=== PATIENT | female | born 1980 | race Caucasian/White ===

== ENCOUNTER 2017-07-03 18:01 | Emergency (ER) | payer OTHER ==
[2017-07-03] MEDS ORDERED: Acetaminophen/Codeine 30-300mg Tablet ONE (19:33)
--- NOTE | 2017-07-03 19:36 | RAD ---
LEFT FOOT THREE VIEWS: 07/03/17 HISTORY: Foot pain. There are calcaneal spurs present. There is some minimal arthritic changes of the ankle joint. There is soft tissue swelling on the dorsum of the foot. There is no signs of any acute bony findings. Mini mal arthritic changes of the first metatarsophalangeal joint are seen. Accessory navicular is noted. IMPRESSION: No acute findings. POS: [facility]
== END 2017-07-03 19:40 | disposition home or self-care (01) ==
LOC: ERS 18:01
DX: L03.032 Cellulitis of left toe (principal); I10 Essential (primary) hypertension; G43.909 Migraine, unspecified, not intractable, without status migrainosus; F17.210 Nicotine dependence, cigarettes, uncomplicated

== ENCOUNTER 2017-07-07 07:41 | Emergency (ER) | payer OTHER, SELFPAY ==
[2017-07-07 08:32] LABS: #Lymphocytes 2.1 thou/uL (1.20-3.40); #Monocytes 0.4 thou/uL (0.11-0.59); #Neutrophils 5.5 thou/uL (1.40-6.50); %Basophils 0.3 % (0.0-1.0); %Eosinophils 0.5 % (0.0-10.0); %Lymphocytes 26.5 % (21.0-51.0); %Monocytes 4.9 % (0.0-10.0); %Neutrophils 67.8 % (42.0-75.0); Hemoglobin 13.2 g/dL (12.0-16.0); Mean Corpuscular HGB CONC 33.4 g/dL (32.0-36.0); Mean Corpuscular Hemoglobin 34.8 pg (27.0-31.0); Mean Platelet Volume 6.5 fL (7.4-10.4); Platelet Count 379 thou/uL (130-400); RBC Distribution Width 11.8 % (11.5-14.5); Red Blood Cell (RBC) Count 3.81 mill/uL (4.20-5.40); White Blood Cell (WBC) Count 8.1 thou/uL (4.8-10.8)
[2017-07-07 08:50] LABS: ALT (SGPT) 32 U/L (8-55); AST (SGOT) 16 U/L (5-34); Albumin 4.3 g/dL (3.5-5.0); Alkaline Phosphatase 102 U/L (40-150); Anion Gap 13 mmol/L (10-20); BUN (Urea Nitrogen) 15 mg/dL (7.0-18.7); Bilirubin, Total 0.2 mg/dL (0.2-1.2); Calc. Creatinine Clearance 0 mL/min (70-130); Calcium 9.4 mg/dL (7.8-10.44); Carbon Dioxide 16 mmol/L (22-29); Chloride 113 mmol/L (98-107); Estimated GFR-MDRD 77; Globulin 2.8 g/dL (2.4-3.5); Glucose 96 mg/dL (70-105); Potassium 4.1 mmol/L (3.5-5.1); Protein, Total 7.1 g/dL (6.0-8.3); Sodium 138 mmol/L (136-145)
--- NOTE | 2017-07-07 10:45 | RAD ---
THREE VIEWS LEFT FOOT: INDICATION: Left foot pain. COMPARISON: Prior dated 07/03/17. FINDINGS: There is persistent soft tissue swelling surrounding the forefoot. There is a tiny ossific linear de nsity seen adjacent to the base of the 2nd metatarsal seen best on the oblique images. Tarsometatars al alignment on the AP and oblique images remains within normal limits. The tarsometatarsal alignmen t on the lateral projection remains within normal limits. Accessory ossicle is seen adjacent to the cuboid. Enthesopathic change is seen on the posterior calcaneus. IMPRESSION: Persistent soft tissue swelling surrounding the forefoot with suggestion of a small ossific fragment seen adjacent to the medial base of the 2nd metatarsal on the oblique projection only. Due to the pe rsistent complaint of foot pain with associated soft tissue swelling and this radiographic finding on the current examination, which was not evident on the comparison exam dated 07/04/07, a Lisfranc inju ry cannot be excluded. Recommend a dedicated CT of the left foot to evaluate for a Lisfranc injury. POS: [facility]
[2017-07-07] MEDS ORDERED: Lidocaine 1% w/Epinephrine 1:100K 20 ML VIAL ONE (11:40)
[2017-07-07] MEDS ORDERED: Morphine 4 MG/ML VIAL ONE (12:37)
== END 2017-07-07 13:29 | disposition home or self-care (01) ==
LOC: ERS 07:41
DX: L02.612 Cutaneous abscess of left foot (principal); I10 Essential (primary) hypertension; G43.909 Migraine, unspecified, not intractable, without status migrainosus; F17.210 Nicotine dependence, cigarettes, uncomplicated
CPT/HCPCS: 10060; 36415; 80053; 85025; 96374; J2001; J2270

== ENCOUNTER 2017-11-03 02:54 | Inpatient (IN) | payer SELFPAY ==
[2017-11-03] MEDS ORDERED: Ondansetron ODT 4 MG TAB ONE (03:08)
[2017-11-03 03:57] LABS: ALT (SGPT) 22 U/L (8-55); AST (SGOT) 28 U/L (5-34); Albumin 4.4 g/dL (3.5-5.0); Alkaline Phosphatase 86 U/L (40-150); Anion Gap 16 mmol/L (10-20); BUN (Urea Nitrogen) 14 mg/dL (7.0-18.7); Bilirubin, Total 0.4 mg/dL (0.2-1.2); Calc. Creatinine Clearance 0 mL/min (70-130); Calcium 9.6 mg/dL (7.8-10.44); Carbon Dioxide 16 mmol/L (22-29); Chloride 110 mmol/L (98-107); Estimated GFR-MDRD 66; Globulin 3.2 g/dL (2.4-3.5); Glucose 102 mg/dL (70-105); Potassium 4.8 mmol/L (3.5-5.1); Protein, Total 7.6 g/dL (6.0-8.3); Sodium 137 mmol/L (136-145)
[2017-11-03 04:00] LABS: Band 10 % (5-11); Hemoglobin 13.5 g/dL (12.0-16.0); MDiff Complete? YES; Mean Corpuscular HGB CONC 34.3 g/dL (32.0-36.0); Mean Corpuscular Hemoglobin 35.2 pg (27.0-31.0); Mean Platelet Volume 7.5 fL (7.4-10.4); Neutrophil 90 % (42-75); PLT Morphology Comment Appears Adequate; Platelet Count 279 thou/uL (130-400); RBC Distribution Width 11.9 % (11.5-14.5); Red Blood Cell (RBC) Count 3.85 mill/uL (4.20-5.40); White Blood Cell (WBC) Count 20.7 thou/uL (4.8-10.8)
[2017-11-03] MEDS ORDERED: Piperacillin/Tazobactam 4.5 GM VIAL ONE (05:09)
[2017-11-03 05:23] LABS: Base Excess-Venous -2.4 mmol/L (0 (+/- 2.5)); Bicarbonate (HCO3v) 22.1 mmol/L (1.0-85.0); CO2 Tension (PvCO2) 36.7 mmHg (41.0-51.0); Calcium, Ionized 1.22 mmol/L (1.12-1.32); Potassium 4.2 mmol/L (3.4-4.7); T. Carbon Dioxide 23.3 mmol/L (1.0-85.0); pH (Venous) 7.388 (7.35-7.45); vO2 Saturation-calc 78.3 % (94-98)
[2017-11-03] MEDS ORDERED: Morphine 4 MG/ML VIAL ONE (07:16)
--- NOTE | 2017-11-03 07:37 | RAD ---
CHEST 1 VIEW: HISTORY: Fever. Sepsis. COMPARISON: 10/31/17. FINDINGS: Portable upright chest demonstrates a normal cardiac silhouette. The pulmonary vessels and hilum are normal. Costophrenic angles are clear. No masses or consolidation. No pneumothorax or osseous abn ormalities. IMPRESSION: No acute cardiopulmonary process. POS: [facility]
[2017-11-03] MEDS ORDERED: ISOVUE-370 76%-LOCM 1 ML ONE (07:44)
[2017-11-03 07:50] LABS: Bilirubin Negative (Negative); Blood, Urine Trace (Negative); Clarity CLEAR (Clear); Glucose, Urine (Dipstick) Negative (Negative); Leukocyte Negative (Negative); Nitrite Negative (Negative); Protein, Urine (Dipstick) Negative (Neg-Trace); Specific Gravity, Urine 1.024 (1.002-1.036); Urobilinogen 0.2 mg/dL (0.2-1.0)
[2017-11-03 07:53] LABS: Bacteria/HPF None Seen HPF (None Seen); Hyaline Casts/LPF 0-3 HYALINE CAST LPF (0-3 Hyaline); Pathc Cast-AUWi Flag 0.29 (0-2.49); Squamous Epithelial 0-3 HPF (0-3); WBC/HPF None Seen HPF (0-3)
[2017-11-03] MEDS ORDERED: Ondansetron HCl/PF 4 MG/2 ML Vial ONE (08:07)
--- NOTE | 2017-11-03 08:16 | RAD ---
CHEST 1 VIEW: Date: 11/03/17 COMPARISON: 11/03/17. HISTORY: Sepsis. FINDINGS: Interval placement of right-sided internal jugular central venous catheter. There is no pneumothorax. Stable aeration of the lung parenchyma. Stable cardiac silhouette. IMPRESSION: Interval placement of right-sided internal jugular central venous catheter. No pneumothorax. POS: [facility]
--- NOTE | 2017-11-03 08:32 | CT ---
ABDOMEN CT WITH CONTRAST PELVIC CT WITH CONTRAST: COMPARISON: 08/15/16. HISTORY: Nausea. Vomiting. Fever and malaise. Weakness. Abdominal pain. FINDINGS: ABDOMEN CT: Minimal dependent atelectatic changes. Normal heart size. No pericardial effusion. The descending thoracic aorta and abdominal aorta have a normal caliber. No periaortic fat stranding. Nonspecific periaortic and aortocaval lymph nodes. Unremarkable gallbladder. Liver, spleen, pancreas, and adrenal glands are unremarkable. Symmetric enhancement of the kidneys. Bilaterally, no obstructive uropathy. No gastrohepatic, retrocrural, or periportal lymphadenopathy. No mesenteric mass, lymphadenopathy, free air, or free fluid. Limited evaluation of the alimentary c anal by the lack of oral contrast. Gastric mucosa, duodenum, and multiple normal-caliber small bowel loops are noted. Ileocecal junction is normal. Normal-caliber appendix. Scattered fecal material in a nondistended, nondilated colon. Occasional diverticulum. No diverticulitis. Symmetric enhancement of the kidneys. Symmetric excretion into a nondistended, nondilated intra- and extrarenal collecting system. PELVIC CT: No masses, lymphadenopathy, free air, or free fluid. Uterus appears to be surgically absent. Bilate ral adnexal structures are grossly unremarkable. The left ovary is noted with multiple follicles. T he urinary bladder is unremarkable. No lytic or blastic lesions in the osseous structures. IMPRESSION: 1. No acute abnormality in the abdomen or pelvis. 2. Normal-caliber appendix. 3. Symmetric enhancement and excretion into the kidneys. POS: [facility]
[2017-11-03] MEDS ORDERED: Promethazine HCl 25 MG/ML VIAL ONE (08:48)
[2017-11-03] MEDS ORDERED: Sodium Chloride 0.9% 1,000 ML IV SCH (12:31)
[2017-11-03] MEDS ORDERED: Acetaminophen 325 MG TAB PO PRN (13:00)
[2017-11-03] MEDS ORDERED: Piperacillin/Tazobactam 4.5 GM in Sodium Chloride 0.9% 100 ML IVPB SCH (13:00)
[2017-11-03 13:25] VITALS: BMI 40.0
[2017-11-03] MEDS ORDERED: Ondansetron ODT 4 MG TAB PO PRN (13:47)
[2017-11-03] MEDS ORDERED: cloNIDine 0.1 MG TAB PO PRN (13:47)
[2017-11-03] MEDS ORDERED: Lorazepam 2 MG/ML VIAL SLOW IVP PRN (13:47)
[2017-11-03] MEDS ORDERED: SUMAtriptan Succinate 50 MG TAB PO PRN (14:04)
[2017-11-03] MEDS ORDERED: Ondansetron ODT 4 MG TAB SL PRN (14:13)
[2017-11-03] MEDS ORDERED: Ondansetron HCl/PF 4 MG/2 ML Vial IVP PRN (14:13)
[2017-11-03] MEDS: Acetaminophen 500 MG TAB PO PRN (15:50)
[2017-11-03] MEDS: Ondansetron HCl/PF 4 MG/2 ML Vial IVP PRN ×2 (15:55→21:41)
[2017-11-03] MEDS: Cefepime 2 GM in Sodium Chloride 0.9% 100 ML IVPB SCH (15:55)
[2017-11-03] MEDS: Sodium Chloride 0.9% 1,000 ML IV SCH (15:56)
[2017-11-03] MEDS ORDERED: Vancomycin HCl 1 GM in Premix Bag 1 BAG IVPB SCH (16:00)
[2017-11-03 16:25] LABS: Amphetamine Not Detected (NotDetected); Barbiturates Screen Not Detected (NotDetected); Benzodiazepine Screen Detected (NotDetected); Cocaine Metabolite Screen Not Detected (NotDetected); Medtox Control Line Valid? VALID (VALID); Medtox Reader # READER 4; Methadone Not Detected (NotDetected); Methamphetamine Not Detected (NotDetected); Opiate Screen Detected (NotDetected); Oxycodone Screen Not Detected (NotDetected); Phencyclidine (PCP) Not Detected (NotDetected); THC/Cannabinoid Screen Not Detected (NotDetected); Tricyclic Screen Not Detected (NotDetected)
[2017-11-03] MEDS: Acetaminophen 1,000 MG in Premix Bag 1 BAG IVPB SCH (21:32)
[2017-11-03] MEDS: Pantoprazole 40 MG VIAL IVP SCH (21:40)
[2017-11-03] MEDS: Vancomycin HCl 1 GM in Premix Bag 1 BAG IVPB SCH (21:41)
[2017-11-04] MEDS: Acetaminophen 500 MG TAB PO PRN (01:10)
[2017-11-04] MEDS: Sodium Chloride 0.9% 1,000 ML IV SCH ×4 (01:11→21:28)
[2017-11-04] MEDS: Cefepime 2 GM in Sodium Chloride 0.9% 100 ML IVPB SCH ×2 (03:15→17:07)
[2017-11-04 06:16] LABS: ALT (SGPT) 65 U/L (8-55); AST (SGOT) 67 U/L (5-34); Albumin 3.3 g/dL (3.5-5.0); Alkaline Phosphatase 94 U/L (40-150); Anion Gap 10 mmol/L (10-20); BUN (Urea Nitrogen) 9 mg/dL (7.0-18.7); Bilirubin, Total 0.3 mg/dL (0.2-1.2); Calc. Creatinine Clearance 169 mL/min (70-130); Calcium 8.2 mg/dL (7.8-10.44); Carbon Dioxide 20 mmol/L (22-29); Chloride 112 mmol/L (98-107); Estimated GFR-MDRD Greater than 90; Globulin 2.5 g/dL (2.4-3.5); Glucose 74 mg/dL (70-105); Potassium 3.7 mmol/L (3.5-5.1); Protein, Total 5.8 g/dL (6.0-8.3); Sodium 138 mmol/L (136-145)
[2017-11-04] MEDS: Lisinopril/Hydrochlorothiazide 20/25 mg Tablet PO SCH (11:15)
[2017-11-04] MEDS: Acetaminophen 1,000 MG in Premix Bag 1 BAG IVPB SCH (11:16)
[2017-11-04 11:26] LABS: Hemoglobin 11.6 g/dL (12.0-16.0); Hypochromia SLIGHT = 6-15 cells (100X) (0-5/hpf); Lymphocytes 17 % (21-51); MDiff Complete? YES; Mean Corpuscular HGB CONC 33.9 g/dL (32.0-36.0); Mean Platelet Volume 8.8 fL (7.4-10.4); Microcytosis SLIGHT = 6-15 cells (100X) (0-5/hpf); Monocytes 4 % (0-10); Neutrophil 79 % (42-75); PLT Morphology Comment Appears Adequate; Platelet Count 288 thou/uL (130-400); Red Blood Cell (RBC) Count 3.31 mill/uL (4.20-5.40); White Blood Cell (WBC) Count 6.6 thou/uL (4.8-10.8)
--- NOTE | 2017-11-04 11:52 | PDOC.PN ---
- Subjective Encounter Start Date: 11/04/17 Encounter Start Time: 10:00 Subjective: f/u for headache, abd pain, n/v. Overall feels a little better and no -: emesis. JEAN-BAPTISTE improving. Not eating currently. No fever. - Objective Resuscitation Status: Resuscitation Status FULL:Full Resuscitation MAR Reviewed: Yes Vital Signs & Weight: Vital Signs (12 hours) Temp Pulse Resp BP BP Pulse Ox 11/04/17 11:15 85 131/74 11/04/17 05:03 97.7 F 89 16 113/64 96 Weight Weight 223 lb 2 oz I&O: 11/03/17 11/04/17 11/05/17 06:59 06:59 06:59 Intake Total 1775 Output Total 700 Balance 1075 Result Diagrams: 11/04/17 05:41 11/04/17 05:41 Additional Labs: Microbiology 11/03/17 05:00 Nasal swab Influenza Types A,B Direct EIA - Final 11/03/17 07:19 Urine voided Urine Culture - Preliminary NO GROWTH AT 24 HOURS 11/03/17 04:55 Venous blood - Right Foot Blood Culture - Preliminary Specimen has been received and culture in progress. No Growth to date. 11/03/17 03:28 Venous blood - Left Arm Blood Culture - Preliminary Specimen has been received and culture in progress. No Growth to date. Laboratory Tests 11/03/17 11/03/17 11/04/17 03:30 03:30 05:41 WBC 20.7 H Hgb 13.5 Neutrophils % (Manual) 90 H 79 H Carbon Dioxide 16 L Radiology Reviewed by me: Yes (CT abd/pel - no acute process) EKG Reviewed by me: Yes (Tele - SR) Phys Exam - Physical Examination alert, responds to questions HEENT: PERRLA, sclera anicteric, oral pharynx no lesions Neck: no nodes, no JVD, supple, full ROM Respiratory: no wheezing, no rales, no rhonchi, clear to auscultation bilateral S1, S2 Cardiovascular: RRR, no significant murmur, no rub, gallop Gastrointestinal: soft, non-tender, no distention, positive bowel sounds Musculoskeletal: no edema, pulses present Neurological: normal sensation, moves all 4 limbs Psychiatric: A&O x 3 Skin: no rash, normal turgor, cap refill <2 seconds Dx/Plan (1) Headache Code(s): R51 - HEADACHE Status: Acute Qualifiers: Headache type: tension-type Comment: Improving, continue supportive mgmt, IVF's, Tylenol, Imitrex prn (2) Nausea & vomiting Code(s): R11.2 - NAUSEA WITH VOMITING, UNSPECIFIED Status: Acute Comment: Improved, Phenergan and Zofran prn, IVF's, clear liquids as tolerated (3) Abdominal pain Code(s): R10.9 - UNSPECIFIED ABDOMINAL PAIN Status: Acute Qualifiers: Abdominal location: generalized Qualified Code(s): R10.84 - Generalized abdominal pain Comment: Unclear etiology, improved, start clear liquids, pain control as clinically indicated (4) Neutrophilic leukocytosis Code(s): D72.9 - DISORDER OF WHITE BLOOD CELLS, UNSPECIFIED Status: Acute Comment: Resolved, ? etiology (5) Viral syndrome Status: Acute Comment: Suspected given negative work up to date, supportive care, monitor final blood cx results - Plan plan discussed w/ family, continue antibiotics, public health social worker, out of bed/ ambulate, DVT proph w/SCDs Stable overall -: Continue IVF's another 24h then d/c -: Continue empiric Vanc/Cefepime another 24h then de-escalate -: Clear liquids today -: Continue antiemetics prn * AM lab: CBC * Transfer to medical * Likely home in 24h
[2017-11-04] MEDS: Ondansetron HCl/PF 4 MG/2 ML Vial IVP PRN (12:23)
[2017-11-04] MEDS: Vancomycin HCl 1 GM in Premix Bag 1 BAG IVPB SCH ×2 (12:24→21:33)
[2017-11-04 13:10] LABS: Folate (Folic Acid) 9.8 ng/mL (7.0-31.4)
--- NOTE | 2017-11-04 14:36 | HP ---
DATE OF ADMISSION: 11/03/2017 PRIMARY CARE PHYSICIAN: Dr. Anabel Villa at [facility] in [place], [place]. CHIEF COMPLAINT: Nausea, abdominal pain and general weakness. HISTORY OF PRESENT ILLNESS: This is a 37-year-old female who presents to [facility] Emergency Department after experiencing increased nausea, vomiting and abdominal discomfort, which began approximately at 11:00 p.m. on 11/02/2017. The patient states she had eaten a regular dinner approximately 8:00 to 9:00 p.m. on 11/02/2017 when she developed her symptoms as stated previously approximately 2 hours later. The patient denied any diarrhea, hematuria or blood in the stool. The patient denied any family members or her children with similar symptoms. The patient felt generally weak and apparently sustained an anxiety attack approximately 48 hours prior to the evaluation in the emergency room. The patient apparently experienced anxiety attack while attending a football game with her and was treated at [facility] Emergency Department and discharged home on Valium. The patient states she does not take chronic Valium, however, does take an antihypertensive medication, which she has been compliant with. 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 The patient denied any rash, lower extremity swelling, unilateral weakness, but does admit to some bilateral hand tingling. The patient admitted to feeling warm and febrile, however, did not take her temperature at home. The patient did report some sore throat without rhinorrhea or increased cough. In the emergency room, the patient underwent general evaluation including chest imaging showing no acute infiltrate. The patient also underwent evaluation with CT of the abdomen and pelvis showing no acute process. The patient received multiple medications in the emergency room to include intravenous normal saline, Zosyn and vancomycin after initial concern for possible sepsis type picture with elevated white blood cell count, fever and tachycardia. The patient also received Phenergan, Zofran and morphine sulfate. The patient was transferred to the telemetry unit for further evaluation. PAST MEDICAL HISTORY: 1. Migraine headaches, remote. 2. Anxiety. 3. Recurrent abdominal pain of unclear etiology. 4. History of gastritis. 5. Chronic low back pain. 6. History of bacterial meningitis without identified organism. PAST SURGICAL HISTORY: 1. Status post hysterectomy. 2. Status post cholecystectomy. 3. Status post oophorectomy. 4. Status post section x2. 5. Status post bilateral tubal ligation. CURRENT MEDICATIONS: 1. Diazepam 10 mg p.o. t.i.d. p.r.n. 2. Lisinopril/hydrochlorothiazide 20/25 mg 1 tab p.o. daily. ALLERGIES: ASPIRIN, TORADOL and NALBUPHINE. FAMILY HISTORY: Positive for diabetes mellitus in a maternal grandmother and grandfather. Hypertension in her mother. SOCIAL HISTORY: The patient resides in the [facility]. . Smokes up to half a pack of cigarettes daily. No alcohol or illicit drug use. The patient with prior drug screen in 2017. Positive for methamphetamines. REVIEW OF SYSTEMS: The following complete review of systems was negative, unless otherwise mentioned in the HPI or below: Constitutional: Weight loss or gain, ability to conduct usual activities. Skin: Rash, itching. Eyes: Double vision, pain. ENT/Mouth: Nose bleeding, neck stiffness, pain, tenderness. Cardiovascular: Palpitations, dyspnea on exertion, orthopnea. Respiratory: Shortness of breath, wheezing, cough, hemoptysis, fever or night sweats. Gastrointestinal: Poor appetite, abdominal pain, heartburn, nausea, vomiting, constipation, or diarrhea. Genitourinary: Urgency, frequency, dysuria, nocturia. Musculoskeletal: Pain, swelling. Neurologic/Psychiatric: Anxiety, depression. Allergy/Immunologic: Skin rash, bleeding tendency. Otherwise negative except as stated per HPI. PHYSICAL EXAMINATION: VITAL SIGNS: On admission, blood pressure 108/70, pulse 114, respiratory rate 22, temperature 100.4 degrees Fahrenheit, O2 saturation 95% on room air. GENERAL APPEARANCE: This is a 37-year-old female, lethargic, opens eyes and answers questions to direct engagement, in mild distress. HEENT: Pupils are equal, round and reactive to light and accommodation. Extraocular muscles are intact. No scleral icterus. No conjunctival injection. Nares are patent. OP is clear. Oral mucosa dry appearing. NECK: Supple. No cervical adenopathy, no thyromegaly, no carotid bruits, no JVD appreciated. Cervical spine with full active and passive range of motion. Right internal jugular central venous catheter in place. CHEST: Lungs are clear to auscultation bilaterally. CARDIOVASCULAR: S1, S2 without noted murmur, rub or gallop. ABDOMEN: Rounded, soft with mild tenderness to palpation diffusely. No rebound or guarding noted. No palpable mass. Bowel sounds are positive in all four quadrants. EXTREMITIES: Warm and dry with fair turgor. No clubbing, cyanosis or asymmetric edema appreciated. Pulses palpable distally at the dorsalis pedis, posterior tibial and popliteal arteries bilaterally. Capillary refill less than 2 seconds. NEUROLOGIC: Cranial nerves II-XII are grossly intact. No focal or lateralizing signs appreciated. The patient not observed ambulatory during this exam. PERTINENT LABORATORY AND X-RAY FINDINGS: Basic metabolic profile within normal limits. Lactic acid level 1.8, calcium 9.6. LFTs within normal limits. CBC showed a white blood cell count of 20.7, hemoglobin 13.5, hematocrit 40, MCV 103 , platelet count 279,000 with 90% neutrophils, 10% bands. Urinalysis negative. Influenza A and B antigen dated 11/03/2017 negative. Portable chest x-ray dated 11/03/2017 showed no acute cardiopulmonary process. CT of the abdomen and pelvis dated 11/03/2017 showed no acute intra-abdominal process. Telemetry monitoring shows a sinus mechanism with heart rates in the 90s. ASSESSMENT AND PLAN: 1. Abdominal pain. The patient will be admitted to the telemetry unit. Exact etiology is unclear currently. CT of the abdomen and pelvis performed, negative. We will continue symptomatic and supportive management. EGD performed 08/19/2016 showed mild antral gastritis, otherwise negative. Colonoscopy performed 08/19/2016, negative. Continue supportive management. Pain control as needed. Morphine sulfate 4 mg IV q.4 hours p.r.n. 2. Headaches. Questionable migraine variant. We will continue Acetaminophen 1000 mg IV q.6 hours. Continue intravenous normal saline. Imitrex as needed. 3. Nausea and vomiting. Exact etiology unclear. Questionable viral gastroenteritis. Continue IV fluids and antiemetics with Zofran 4 mg IV q.6 hours p.r.n. 4. Neutrophilic leukocytosis. Exact etiology and source unclear. We will repeat CBC. We will continue empiric antibiotic therapy with vancomycin and cefepime pending final urine and blood culture results. No current focal evidence of infectious process. 5. Hypertension. We will hold home antihypertensive regimen and monitor blood pressure trend. Clonidine p.r.n. systolic greater than or equal to 170. 6. Prophylaxis. Sequential compression devices while in bed. Protonix 40 mg IV daily. 7. Code status is full. Surrogate medical decision maker is the patient's spouse. [facility]
[2017-11-04] MEDS ORDERED: Sodium Chloride 0.9% 10 ML ONE (19:58)
[2017-11-04 20:33] LABS: Vancomycin, Trough 11.9 ug/mL
[2017-11-04] MEDS: Pantoprazole 40 MG VIAL IVP SCH (21:29)
[2017-11-04] MEDS: Vancomycin HCl 1.25 GM in Sodium Chloride 0.9% 250 ML 250 ML IVPB SCH (21:43)
[2017-11-05] MEDS: Cefepime 2 GM in Sodium Chloride 0.9% 100 ML IVPB SCH ×2 (04:03→15:26)
[2017-11-05 05:44] LABS: Band 9 % (5-11); Eosinophils 1 % (0-10); Hemoglobin 11.7 g/dL (12.0-16.0); Lymphocytes 19 % (21-51); MDiff Complete? YES; Mean Corpuscular HGB CONC 33.5 g/dL (32.0-36.0); Mean Corpuscular Hemoglobin 34.2 pg (27.0-31.0); Mean Platelet Volume 7.7 fL (7.4-10.4); Monocytes 7 % (0-10); Neutrophil 64 % (42-75); PLT Morphology Comment Appears Adequate; Platelet Clumps SLIGHT; Platelet Count 206 thou/uL (130-400); RBC Distribution Width 11.7 % (11.5-14.5); Red Blood Cell (RBC) Count 3.43 mill/uL (4.20-5.40); White Blood Cell (WBC) Count 8.1 thou/uL (4.8-10.8)
[2017-11-05] MEDS: Ondansetron HCl/PF 4 MG/2 ML Vial IVP PRN ×3 (05:57→21:59)
[2017-11-05] MEDS: Sodium Chloride 0.9% 1,000 ML IV SCH ×2 (06:08→09:53)
[2017-11-05] MEDS: Lisinopril/Hydrochlorothiazide 20/25 mg Tablet PO SCH (09:52)
[2017-11-05] MEDS: Vancomycin HCl 1.25 GM in Sodium Chloride 0.9% 250 ML 250 ML IVPB SCH ×2 (10:02→21:59)
--- NOTE | 2017-11-05 14:35 | PDOC.PN ---
- Subjective Encounter Start Date: 11/05/17 Encounter Start Time: 14:15 Subjective: f/u for JEAN-BAPTISTE, N/V and ? viral syndrome. Overall feels better with less JEAN-BAPTISTE. -: Tolerating clear liquids. No fever noted. - Objective Resuscitation Status: Resuscitation Status FULL:Full Resuscitation MAR Reviewed: Yes Vital Signs & Weight: Vital Signs (12 hours) Temp Pulse Resp BP BP Pulse Ox 11/05/17 11:17 97.2 F L 72 16 124/68 98 11/05/17 09:52 77 113/76 11/05/17 07:35 97.8 F 77 16 113/78 96 11/05/17 06:43 97.9 F 83 18 113/81 94 L 11/05/17 04:00 97.5 F L 81 16 110/62 97 Weight Weight 223 lb 2 oz I&O: 11/04/17 11/05/17 11/06/17 06:59 06:59 06:59 Intake Total 1775 3561 240 Output Total 700 950 Balance 1075 2611 240 Result Diagrams: 11/05/17 05:25 11/04/17 05:41 Additional Labs: Microbiology 11/03/17 05:00 Nasal swab Influenza Types A,B Direct EIA - Final 11/03/17 07:19 Urine voided Urine Culture - Preliminary NO GROWTH AT 24 HOURS 11/03/17 04:55 Venous blood - Right Foot Blood Culture - Preliminary Specimen has been received and culture in progress. No Growth to date. 11/03/17 03:28 Venous blood - Left Arm Blood Culture - Preliminary Specimen has been received and culture in progress. No Growth to date. Laboratory Tests 11/03/17 11/03/17 11/04/17 03:30 03:30 05:41 WBC 20.7 H Hgb 13.5 Neutrophils % (Manual) 90 H 79 H Carbon Dioxide 16 L Phys Exam - Physical Examination Constitutional: NAD HEENT: PERRLA, sclera anicteric, oral pharynx no lesions Neck: no nodes, no JVD, supple, full ROM Respiratory: no wheezing, no rales, no rhonchi, clear to auscultation bilateral S1, S2 Cardiovascular: RRR, no significant murmur, no rub, gallop Gastrointestinal: soft, non-tender, no distention, positive bowel sounds Musculoskeletal: no edema, pulses present Neurological: non-focal, normal sensation, moves all 4 limbs Psychiatric: normal affect, A&O x 3 Skin: no rash, normal turgor, cap refill <2 seconds Dx/Plan (1) Headache Code(s): R51 - HEADACHE Status: Acute Qualifiers: Headache type: tension-type Comment: Improving, continue supportive mgmt, saline lock IVF's, Tylenol, Imitrex prn (2) Nausea & vomiting Code(s): R11.2 - NAUSEA WITH VOMITING, UNSPECIFIED Status: Acute Comment: Improved, Phenergan and Zofran prn, clear liquids as tolerated (3) Abdominal pain Code(s): R10.9 - UNSPECIFIED ABDOMINAL PAIN Status: Acute Qualifiers: Abdominal location: generalized Qualified Code(s): R10.84 - Generalized abdominal pain Comment: Unclear etiology, improved, start clear liquids, pain control as clinically indicated (4) Neutrophilic leukocytosis Code(s): D72.9 - DISORDER OF WHITE BLOOD CELLS, UNSPECIFIED Status: Acute Comment: Resolved, ? etiology (5) Viral syndrome Status: Acute Comment: Suspected given negative work up to date, supportive care, monitor final blood cx results - Plan continue antibiotics, out of bed/ambulate, DVT proph w/SCDs Stable overall -: Saline lock IVF's -: Continue IV abx another 24h then d/c -: OOB/ambulate -: ADAT * Likely home in am 11/06/17
[2017-11-05] MEDS: Pantoprazole 40 MG VIAL IVP SCH (20:40)
[2017-11-06] MEDS: Cefepime 2 GM in Sodium Chloride 0.9% 100 ML IVPB SCH (04:15)
[2017-11-06] MEDS: Ondansetron HCl/PF 4 MG/2 ML Vial IVP PRN (06:54)
[2017-11-06] MEDS: Lisinopril/Hydrochlorothiazide 20/25 mg Tablet PO SCH (08:55)
[2017-11-06 09:47] LABS: Vancomycin, Trough 13.4 ug/mL
[2017-11-06] MEDS ORDERED: Vancomycin HCl 1.5 GM in Sodium Chloride 0.9% 250 ML 300 ML IVPB SCH (10:00)
[2017-11-06 12:02] VITALS: BP 115/82; TEMP 98.3
[2017-11-06] MEDS: Acetaminophen 500 MG TAB PO PRN (12:11)
--- NOTE | 2017-11-06 20:32 | DIS ---
DATE OF ADMISSION: 11/03/2017 DATE OF DISCHARGE: 11/06/2017 DISCHARGE DIAGNOSES: 1. Nausea and vomiting, etiology unclear. 2. Headache, likely tension. 3. Abdominal pain, generalized, nonspecific. 4. Neutrophilic leukocytosis, resolved. 5. Viral syndrome, likely. CONSULTATIONS: None. PERTINENT LABORATORY AND X-RAY FINDINGS: Basic metabolic profile within normal limits. Lactic acid level 1.8, AST ranged between 28-67, ALT ranged between 22-65, alkaline phosphatase ranged between 86 -94. Vitamin B12 level 225, folate 9.8. CBC showed a white blood cell count ranging between 6.6-20. 7, hemoglobin ranged between 11.6-13.5. Urine drug screen positive for opiates and benzodiazepines. Blood cultures x2 dated 11/03/2017 showed no growth at 48 hours. Influenza A and B antigen dated negative. Urine culture dated 11/03/2017 showed no growth at 48 hours. Portable chest x-ra y dated 11/03/2017 showed no acute cardiopulmonary process. CT of the abdomen and pelvis dated 11/03 showed no acute intra-abdominal process. HOSPITAL COURSE: The patient was admitted after presenting with nausea, vomiting, abdominal pain, an d general weakness. The patient underwent extensive evaluation including Radiology and metabolic scr eening with essentially negative findings. The patient was treated for suspected infectious process, placed on empiric IV antibiotic therapy to include vancomycin and cefepime. Blood and urine culture s were unrevealing as stated previously and no specific identifiable source of infectious process was identified. The patient likely with viral syndrome with associated generalized weakness, body aches , myalgias, nausea and vomiting. The patient received IV fluids throughout the hospital course as we ll as antiemetics with mild improvement in symptoms. The patient was attempted on clear liquids with mild improvement in nausea. Overall, patient did remain clinically stable with general supportive m anagement. Workup was unrevealing as to exact infectious process and patient overall clinically stab le on multiple parameters. I have examined the patient at the time of discharge and discussed follow up instructions. The patient overall clinically stable and ready for discharge on 11/06/2017. DISCHARGE MEDICATIONS: 1. Diazepam 10 mg p.o. t.i.d. p.r.n. 2. Zofran ODT 4 mg p.o. q.6 hours p.r.n. nausea, vomiting. FOLLOWUP: The patient may follow up with her primary care provider, Blanca Chavez, within 7 days o f discharge. CONDITION ON DISCHARGE: Stable. ACTIVITY: Ad varsha. DIET: Regular. CODE STATUS: FULL. DISPOSITION: Home on 11/06/2017. Total time preparing and coordinating discharge is 32 minutes.
--- NOTE | 2017-11-07 21:00 | PQF ---
HARPER MARTINEZ CHARLES DO [id number] CLINICAL DOCUMENTATION CLARIFICATION FORM: POST DISCHARGE Addendum to original discharge summary date: ____ Late entry note date: __ DATE: 11/07/2017 ATTN: FOSTER JESUS DO Please exercise your independent, professional judgment in responding to the clarification form. Clinical indicators are provided on the bottom of this form for your review Please check appropriate box(s) to clarify if the following diagnosis has been ruled in or ruled out: SEPSIS [ ] Ruled in diagnosis [ ] Continue to treat [ ] Resolved [ x ] Ruled out diagnosis [ ] Cannot rule out diagnosis [ ] Other diagnosis [ ] Unable to determine In addition, please specify: Present on Admission (POA): [ ] Yes [ x ] No [ ] Unable to determine For continuity of documentation, please document condition throughout progress notes and discharge summary. Thank You. CLINICAL INDICATORS - SIGNS / SYMPTOMS / LABS ER: Sepsis H&P: IV normal saline, Zosyn, Vancomycin after concern for possible sepsis type picture with elevated WBC, fever, and tachycardia VITAL SIGNS: On admission, BP 108/70, Pulse 114, RR 22, Temp 100.4 LABORATORY: WBC 20.7, Lactic Acid 1.8, 10% Bands, Urinalysis negative, Influenza A and B negative No current focal evidence of infectious process DC SUMMARY: Viral syndrome likely Blood cultures showed no growth in 48 hours RISK FACTORS Infection TREATMENTS IV Fluids Zosyn, Vancomycin CBC, Blood Cultures (This form is maintained as a part of the permanent medical record) 2014 [employer]. All Rights Reserved Matthew [email or web address] [phone] MTDD
== END 2017-11-06 13:34 | disposition home or self-care (01) | DRG 866 ==
LOC: ERS 02:54 → ERHOLD 07:22 → 2NO 12:39 → T4-B 11-05 06:49
PROVIDERS: ADMIT Internal Medicine; ATTEND Internal Medicine
PROC: 05HY33Z Insertion of Infusion Device into Upper Vein, Percutaneous Approach (ICD-10-PCS; principal; 2017-11-03)
DX: B34.9 Viral infection, unspecified (principal); G44.209 Tension-type headache, unspecified, not intractable; R11.2 Nausea with vomiting, unspecified; R10.84 Generalized abdominal pain; D72.9 Disorder of white blood cells, unspecified; I10 Essential (primary) hypertension; M54.5 Low back pain; G89.29 Other chronic pain; G43.909 Migraine, unspecified, not intractable, without status migrainosus; K29.70 Gastritis, unspecified, without bleeding; F17.210 Nicotine dependence, cigarettes, uncomplicated; F41.9 Anxiety disorder, unspecified
CPT/HCPCS: 36415; 36556; 71045; 74177; 80053; 80202; 80306; 81003; 81015; 82330; 82607; 82746; 82803; 83605; 85007; 85025; 85027; 87040; 87086; 87804; 96361; 96365; 96366; 96367; 96375; 99406; A4216; C9113; J0131; J0692; J2270; J2405; J2543; J2550; J3370; J7050; Q0162

== ENCOUNTER 2018-03-14 07:28 | Emergency (ER) | payer SELFPAY | END 2018-03-14 08:35 | disposition home or self-care (01) | LOC: ERS 07:28 | DX: M25.531 Pain in right wrist (principal); I10 Essential (primary) hypertension; G43.909 Migraine, unspecified, not intractable, without status migrainosus; F17.210 Nicotine dependence, cigarettes, uncomplicated | CPT/HCPCS: 99281 ==

== ENCOUNTER 2018-04-06 18:50 | Emergency (ER) | payer SELFPAY ==
[2018-04-06] MEDS ORDERED: Methocarbamol 1 GM in Sodium Chloride 0.9% 250 ML 250 ML IVPB SCH (19:30)
--- NOTE | 2018-04-06 20:22 | CT ---
CT LUMBAR SPINE WITHOUT CONTRAST: HISTORY: Back pain. The patient slipped down stairs. Pain radiating to the left leg. FINDINGS: The vertebral bodies all maintain normal height. There are degenerative osteophytes but no significa nt disk narrowing. There are also some mild degenerative facet changes. The facets are in normal al ignment. Bilateral renal calculi, which appear nonobstructing, are incidentally noted. No paraverte bral soft tissue masses. Review of the disk levels on this examination show no signs of any definite disk herniation. There i s a disk bulge at L4-L5. The canal appears to be mildly stenotic. This can often be over-estimated on a noncontrast exam. There are facet and ligamentous hypertrophic changes at this level. No other signs of any findings that would suggest canal narrowing. IMPRESSION: 1. No CT evidence of fracture. 2. Mild canal stenosis at L4-L5, caused by a combination of disk bulge facet and ligamentous hypertr ophic change. 3. Multiple bilateral punctate, nonobstructing renal calculi. POS: [facility]
[2018-04-06 20:23] LABS: #Basophils 0.1 thou/uL (0.0-0.2); #Lymphocytes 2.9 thou/uL (1.20-3.40); #Monocytes 0.4 thou/uL (0.11-0.59); #Neutrophils 6.7 thou/uL (1.40-6.50); %Basophils 1.1 % (0.0-1.0); %Eosinophils 0.2 % (0.0-10.0); %Lymphocytes 28.8 % (21.0-51.0); %Monocytes 3.7 % (0.0-10.0); %Neutrophils 66.2 % (42.0-75.0); Hemoglobin 12.2 g/dL (12.0-16.0); Mean Corpuscular HGB CONC 32.8 g/dL (32.0-36.0); Mean Corpuscular Hemoglobin 33.4 pg (27.0-31.0); Mean Platelet Volume 7.8 fL (7.4-10.4); Platelet Count 317 thou/uL (130-400); RBC Distribution Width 11.7 % (11.5-14.5); Red Blood Cell (RBC) Count 3.64 mill/uL (4.20-5.40); White Blood Cell (WBC) Count 10.1 thou/uL (4.8-10.8)
[2018-04-06 20:49] LABS: ALT (SGPT) 11 U/L (8-55); AST (SGOT) 14 U/L (5-34); Albumin 4.4 g/dL (3.5-5.0); Alkaline Phosphatase 73 U/L (40-150); Anion Gap 11 mmol/L (10-20); BUN (Urea Nitrogen) 20 mg/dL (7.0-18.7); Bilirubin, Total 0.2 mg/dL (0.2-1.2); Calc. Creatinine Clearance 0 mL/min (70-130); Calcium 9.3 mg/dL (7.8-10.44); Carbon Dioxide 16 mmol/L (22-29); Chloride 112 mmol/L (98-107); Estimated GFR-MDRD 63; Globulin 2.5 g/dL (2.4-3.5); Glucose 98 mg/dL (70-105); Potassium 3.5 mmol/L (3.5-5.1); Protein, Total 6.9 g/dL (6.0-8.3); Sodium 135 mmol/L (136-145)
[2018-04-06 20:57] LABS: BHCG - Serum Negative (NEGATIVE)
[2018-04-06 20:58] LABS: Pregs Control Background? CLEAR/WHITE (CLR/WHITE); Pregs Control Bar Appear? YES (CONTROL BAR)
[2018-04-06] MEDS ORDERED: Acetaminophen/Codeine 30-300mg Tablet ONE (21:58)
== END 2018-04-06 22:15 | disposition home or self-care (01) ==
LOC: ERS 18:50
DX: M54.42 Lumbago with sciatica, left side (principal); I10 Essential (primary) hypertension; G43.909 Migraine, unspecified, not intractable, without status migrainosus; F17.210 Nicotine dependence, cigarettes, uncomplicated; Z79.899 Other long term (current) drug therapy; W19.XXXA Unspecified fall, initial encounter
CPT/HCPCS: 36415; 72131; 80053; 84703; 85025; 96365; J2800; J7050

== ENCOUNTER 2020-01-07 17:05 | Emergency (ER) | payer SELFPAY ==
[2020-01-07] MEDS ORDERED: HYDROcodone/Acetaminophen 10/325 mg Tablet ONE (18:02)
[2020-01-07] MEDS ORDERED: AMOXicillin 250 MG CAP ONE (18:03)
== END 2020-01-07 18:41 | disposition home or self-care (01) ==
LOC: ERS 17:05
DX: K03.81 Cracked tooth (principal); I10 Essential (primary) hypertension; F17.210 Nicotine dependence, cigarettes, uncomplicated
CPT/HCPCS: 99283

== ENCOUNTER 2020-05-18 14:26 | Emergency (ER) | payer SELFPAY ==
[~2020-05-18 14:26] MED LIST: Iopamidol-370 76% 500 ML 1 ML ONE
[2020-05-18] MEDS ORDERED: Mag-Al 1200 mg/1200 mg/30 ML UDCUP ONE (14:35)
[2020-05-18] MEDS ORDERED: Lidocaine Viscous Sol 2% 15 ml UD Cup ONE (14:35)
[2020-05-18 15:15] LABS: Hemoglobin 12.3 g/dL (12.0-16.0); Mean Corpuscular HGB CONC 33.3 g/dL (32.0-36.0); Mean Corpuscular Hemoglobin 36.5 pg (27.0-31.0); Mean Platelet Volume 7.3 fL (7.4-10.4); Platelet Count 355 thou/uL (130-400); RBC Distribution Width 11.5 % (11.5-14.5); Red Blood Cell (RBC) Count 3.36 mill/uL (4.20-5.40); White Blood Cell (WBC) Count 7.5 thou/uL (4.8-10.8)
[2020-05-18 15:16] LABS: #Basophils 0.1 thou/uL (0.0-0.2); #Eosinphils 0.1 thou/uL (0.0-0.7); #Lymphocytes 2.3 thou/uL (1.20-3.40); #Monocytes 0.5 thou/uL (0.11-0.59); #Neutrophils 4.6 thou/uL (1.40-6.50); %Eosinophils 1.1 % (0.0-10.0); %Lymphocytes 30.4 % (21.0-51.0); %Monocytes 6.7 % (0.0-10.0); %Neutrophils 60.9 % (42.0-75.0)
[2020-05-18 15:21] LABS: BHCG - Serum Negative (NEGATIVE); Pregs Control Background? CLEAR/WHITE (CLR/WHITE); Pregs Control Bar Appear? YES (CONTROL BAR)
[2020-05-18 15:33] LABS: MDiff Complete? YES; Macrocytosis SLIGHT = 6-15 cells (100X) (0-5/hpf); Platelet Morphology Comment Appears Adequate; Polychromasia SLIGHT = 2-3 cells (100X) (0-2/hpf)
[2020-05-18] MEDS ORDERED: Dicyclomine 20 MG TAB ONE (15:34)
[2020-05-18 15:36] LABS: ALT (SGPT) 10 U/L (8-55); AST (SGOT) 13 U/L (5-34); Albumin 4.3 g/dL (3.5-5.0); Alkaline Phosphatase 78 U/L (40-110); Anion Gap 13 mmol/L (10-20); BUN (Urea Nitrogen) 32 mg/dL (7.0-18.7); Bilirubin, Total 0.2 mg/dL (0.2-1.2); Calc. Creatinine Clearance 0 mL/min (70-130); Calcium 9.2 mg/dL (7.8-10.44); Carbon Dioxide 19 mmol/L (22-29); Chloride 108 mmol/L (98-107); Globulin 2.8 g/dL (2.4-3.5); Glucose 94 mg/dL (70-105); Lipase 37 U/L (8-78); Potassium 4.4 mmol/L (3.5-5.1); Protein, Total 7.1 g/dL (6.0-8.3); Sodium 136 mmol/L (136-145)
[2020-05-18 15:56] LABS: Bilirubin Negative (Negative); Blood, Urine Negative (Negative); Clarity Clear (Clear); Glucose, Urine (Dipstick) Normal (Negative); Ketone, Urine Negative (Negative); Leukocyte Negative Leu/uL (Negative); Nitrite 2+ (Negative); Protein, Urine (Dipstick) Negative (Neg-Trace); RBC/HPF 0-3 HPF (0-3); Specific Gravity, Urine 1.029 (1.002-1.036); Squamous Epithelial 0-3 HPF (0-3); Urobilinogen Normal mg/dL (Less than 2); WBC/HPF 0-3 HPF (0-3)
[2020-05-18 15:57] LABS: Bacteria/HPF 1+ HPF (None Seen)
[2020-05-18] MEDS ORDERED: Morphine 4 MG/ML VIAL ONE ×2 (16:16→17:00)
== END 2020-05-18 17:35 | disposition home or self-care (01) ==
LOC: ERS 14:26
DX: R10.13 Epigastric pain (principal); I10 Essential (primary) hypertension; F17.210 Nicotine dependence, cigarettes, uncomplicated
CPT/HCPCS: 74177; 80053; 81003; 81015; 83690; 84703; 85025; 93005; 96374; 96376; J2270; Q9967

== ENCOUNTER 2022-02-14 17:02 | Inpatient (IN) | payer SELFPAY ==
[2022-02-14 17:28] LABS: #Eosinphils 0.1 thou/uL (0.0-0.7); #Monocytes 0.5 thou/uL (0.11-0.59); #Neutrophils 5.1 thou/uL (1.40-6.50); %Basophils 0.6 % (0.0-1.0); %Eosinophils 0.9 % (0.0-10.0); %Lymphocytes 25.9 % (21.0-51.0); %Monocytes 6.4 % (0.0-10.0); %Neutrophils 66.2 % (42.0-75.0); Hemoglobin 12.4 g/dL (12.0-16.0); Mean Corpuscular Hemoglobin 32.4 pg (27.0-31.0); Mean Corpuscular Volume 98.3 fl (78.0-98.0); Mean Platelet Volume 7.5 fL (7.4-10.4); Platelet Count 252 10x3/uL (130-400); RBC Distribution Width 10.8 % (11.5-14.5); Red Blood Cell (RBC) Count 3.81 mill/uL (4.20-5.40); White Blood Cell (WBC) Count 7.6 10x3/uL (4.8-10.8)
[2022-02-14 17:48] LABS: ALT (SGPT) 16 U/L (8-55); AST (SGOT) 19 U/L (5-34); Alkaline Phosphatase 71 U/L (40-110); Anion Gap 11 mmol/L (10-20); BUN (Urea Nitrogen) 15 mg/dL (7.0-18.7); Bilirubin, Total 0.3 mg/dL (0.2-1.2); Calc. Creatinine Clearance 0 mL/min (70-130); Calcium 8.9 mg/dL (7.8-10.44); Carbon Dioxide 22 mmol/L (22-29); Chloride 109 mmol/L (98-107); Estimated GFR 73; Globulin 2.5 g/dL (2.4-3.5); Glucose 96 mg/dL (70-105); Protein, Total 6.5 g/dL (6.0-8.3); Sodium 138 mmol/L (136-145)
[2022-02-14] MEDS ORDERED: Morphine 4 MG/ML VIAL ONE ×2 (18:13→19:56)
[2022-02-14] MEDS ORDERED: Vancomycin 1 GM/200 ML (FROZEN) BAG ONE (18:13)
[2022-02-14] MEDS ORDERED: Piperacillin/Tazobactam 3.375 GM VIAL ONE (18:13)
[2022-02-14] MEDS ORDERED: Ondansetron ODT 4 MG TAB SL PRN (20:45)
[2022-02-14] MEDS ORDERED: Acetaminophen 325 MG TAB PO PRN (20:45)
[2022-02-14] MEDS ORDERED: Ondansetron PF 4 MG/2 ML Vial IVP PRN (20:45)
[2022-02-14] MEDS: Sodium Chloride 0.9% 1,000 ML IV SCH (21:46)
[2022-02-14 22:04] LABS: Hemoglobin A1c 5.3 % (4.0-6.0)
[2022-02-14] MEDS: Morphine 4 MG/ML VIAL SLOW IVP PRN (23:01)
[2022-02-14] MEDS ORDERED: Piperacillin/Tazobactam 3.375 GM in Sodium Chloride 0.9% 100 ML IVPB SCH (23:59)
[2022-02-15] MEDS: Piperacillin/Tazobactam 3.375 GM in Sodium Chloride 0.9% 100 ML IVPB SCH ×4 (00:43→23:49)
[2022-02-15] MEDS: Morphine 4 MG/ML VIAL SLOW IVP PRN ×3 (02:25→15:37)
[2022-02-15 02:36] VITALS: BMI 23.5
[2022-02-15 02:36] LABS: SARS-CoV-2 NAA Rapid Test Not Detected (NotDetected)
[2022-02-15] MEDS: Sodium Chloride 0.9% 1,000 ML IV SCH (03:25)
[2022-02-15] MEDS ORDERED: Acetaminophen 500 MG TAB PO PRN (20:19)
[2022-02-15] MEDS: HYDROcodone/Acetaminophen 5/325 mg Tablet PO PRN (20:53)
[2022-02-16] MEDS: Piperacillin/Tazobactam 3.375 GM in Sodium Chloride 0.9% 100 ML IVPB SCH ×3 (08:50→23:43)
[2022-02-16] MEDS: HYDROcodone/Acetaminophen 5/325 mg Tablet PO PRN ×3 (10:39→23:43)
[2022-02-16 20:05] LABS: Amphetamine Detected (NotDetected); Barbiturates Screen Not Detected (NotDetected); Benzodiazepine Screen Not Detected (NotDetected); Cocaine Metabolite Screen Not Detected (NotDetected); Methadone Not Detected (NotDetected); Methamphetamine Detected (NotDetected); Opiate Screen Detected (NotDetected); Oxycodone Screen Not Detected (NotDetected); Phencyclidine (PCP) Not Detected (NotDetected); THC/Cannabinoid Screen Not Detected (NotDetected); Tricyclic Screen Not Detected (NotDetected)
[2022-02-17 07:18] LABS: #Eosinphils 0.1 thou/uL (0.0-0.7); #Lymphocytes 2.1 thou/uL (1.20-3.40); #Monocytes 0.4 thou/uL (0.11-0.59); #Neutrophils 4.3 thou/uL (1.40-6.50); %Basophils 0.2 % (0.0-1.0); %Eosinophils 2.1 % (0.0-10.0); %Lymphocytes 30.1 % (21.0-51.0); %Monocytes 5.2 % (0.0-10.0); %Neutrophils 62.4 % (42.0-75.0); Mean Corpuscular HGB CONC 32.9 g/dL (32.0-36.0); Mean Corpuscular Hemoglobin 32.5 pg (27.0-31.0); Mean Corpuscular Volume 98.7 fl (78.0-98.0); Mean Platelet Volume 8.2 fL (7.4-10.4); Platelet Count 247 10x3/uL (130-400); RBC Distribution Width 10.9 % (11.5-14.5); Red Blood Cell (RBC) Count 3.99 mill/uL (4.20-5.40); White Blood Cell (WBC) Count 6.9 10x3/uL (4.8-10.8)
[2022-02-17 07:35] LABS: ALT (SGPT) 53 U/L (8-55); AST (SGOT) 21 U/L (5-34); Albumin 3.3 g/dL (3.5-5.0); Alkaline Phosphatase 73 U/L (40-110); Anion Gap 10 mmol/L (10-20); BUN (Urea Nitrogen) 14 mg/dL (7.0-18.7); Bilirubin, Total 0.2 mg/dL (0.2-1.2); Calc. Creatinine Clearance 50 mL/min (70-130); Calcium 8.5 mg/dL (7.8-10.44); Carbon Dioxide 23 mmol/L (22-29); Chloride 107 mmol/L (98-107); Estimated GFR 51; Globulin 2.3 g/dL (2.4-3.5); Glucose 100 mg/dL (70-105); Potassium 4.1 mmol/L (3.5-5.1); Protein, Total 5.7 g/dL (6.0-8.3); Sodium 136 mmol/L (136-145)
[2022-02-17] MEDS: Piperacillin/Tazobactam 3.375 GM in Sodium Chloride 0.9% 100 ML IVPB SCH (08:27)
[2022-02-17 08:58] VITALS: BP 111/70; TEMP 98.2
== END 2022-02-17 11:55 | disposition home or self-care (01) | DRG 603 ==
LOC: ERS 17:02 → SJJU 19:44
PROVIDERS: ADMIT Student in an Organized Health Care Education/Training Program; ATTEND Internal Medicine
DX: L03.113 Cellulitis of right upper limb (principal); I10 Essential (primary) hypertension; Z20.822 Contact with and (suspected) exposure to COVID-19; F17.290 Nicotine dependence, other tobacco product, uncomplicated; Z90.710 Acquired absence of both cervix and uterus; Z90.49 Acquired absence of other specified parts of digestive tract; Z98.51 Tubal ligation status; Z88.6 Allergy status to analgesic agent; Z88.5 Allergy status to narcotic agent; Z88.8 Allergy status to other drugs, medicaments and biological substances
CPT/HCPCS: 36415; 80053; 80306; 83036; 83605; 85025; 85652; 86140; 87040; 96365; 96366; 96375; 96376; J2270; J2543; J3370-JW; J3490; J7050; Q9967; U0002

== ENCOUNTER 2023-03-27 16:56 | Emergency (ER) | payer OTHER, SELFPAY ==
[~2023-03-27 16:56] MED LIST changes: -Iopamidol-370 76% 500 ML 1 ML ONE; +Iopamidol-370 76% 500 ML MDV (1 ML CHARGE) ONE
[2023-03-27] MEDS ORDERED: Morphine 4 MG/ML VIAL ONE (17:04)
[2023-03-27] MEDS ORDERED: Ondansetron PF 4 MG/2 ML Vial ONE (17:04)
[2023-03-27] MEDS ORDERED: Dicyclomine 20 MG/2 ML VIAL ONE (17:10)
[2023-03-27 17:42] LABS: #Monocytes 0.6 thou/uL (0.11-0.59); #Neutrophils 6.2 thou/uL (1.40-6.50); %Basophils 0.2 % (0.0-1.0); %Eosinophils 0.2 % (0.0-10.0); %Lymphocytes 21.1 % (21.0-51.0); %Monocytes 6.4 % (0.0-10.0); %Neutrophils 71.9 % (42.0-75.0); Hemoglobin 13.9 g/dL (12.0-16.0); Mean Corpuscular HGB CONC 33.1 g/dL (32.0-36.0); Mean Corpuscular Hemoglobin 31.6 pg (27.0-31.0); Mean Corpuscular Volume 95.5 fl (78.0-98.0); Mean Platelet Volume 9.3 fL (7.4-10.4); Platelet Count 403 10x3/uL (130-400); RBC Distribution Width 15.1 % (11.5-14.5); White Blood Cell (WBC) Count 8.6 10x3/uL (4.8-10.8)
[2023-03-27 17:52] LABS: BHCG - Serum Negative (NEGATIVE); Pregs Control Background? CLEAR/WHITE (CLR/WHITE); Pregs Control Bar Appear? YES (CONTROL BAR)
[2023-03-27] MEDS ORDERED: Haloperidol Lactate 5 MG/ML VIAL ONE (17:57)
[2023-03-27 18:07] LABS: ALT (SGPT) 27 U/L (8-55); AST (SGOT) 29 U/L (5-34); Albumin 4.4 g/dL (3.5-5.0); Alkaline Phosphatase 63 U/L (40-110); Anion Gap 15 mmol/L (10-20); BUN (Urea Nitrogen) 9 mg/dL (7.0-18.7); Bilirubin, Total 0.3 mg/dL (0.2-1.2); Calc. Creatinine Clearance 0 mL/min (70-130); Calcium 9.9 mg/dL (7.8-10.44); Carbon Dioxide 23 mmol/L (22-29); Chloride 106 mmol/L (98-107); Estimated GFR 95; Globulin 2.8 g/dL (2.4-3.5); Glucose 95 mg/dL (70-105); Lipase 14 U/L (8-78); Protein, Total 7.2 g/dL (6.0-8.3); Sodium 140 mmol/L (136-145)
[2023-03-27 18:09] LABS: Troponin I Less than 0.010 ng/mL (< 0.028)
[2023-03-27] MEDS ORDERED: Sucralfate 1 GM/10 ML UDCUP ONE (19:18)
[2023-03-27] MEDS ORDERED: Lidocaine 2% Viscous 10 mL, Alum & Magn 30 mL SSW SCH (19:30)
[2023-03-27 19:58] LABS: Bacteria/HPF None Seen HPF (None Seen); Bilirubin Negative (Negative); Blood, Urine Trace (Negative); CAUTI Indications for Culture Pelvic or flank pain; Clarity Clear (Clear); Glucose, Urine (Dipstick) Normal (Negative); Ketone, Urine 20 mg/dL (Negative); Leukocyte Negative Leu/uL (Negative); Nitrite Negative (Negative); Protein, Urine (Dipstick) Negative (Neg-Trace); RBC/HPF 0-3 HPF (0-3); Urobilinogen Normal mg/dL (Less than 2); WBC/HPF 0-3 HPF (0-3)
[2023-03-27 20:00] LABS: Specific Gravity, Urine 1.051 (1.002-1.036); Urine Culture Reflex No No
== END 2023-03-27 21:03 | disposition home or self-care (01) ==
LOC: ERS 16:56
DX: K29.80 Duodenitis without bleeding (principal); R10.13 Epigastric pain; R10.816 Epigastric abdominal tenderness; I10 Essential (primary) hypertension; F17.290 Nicotine dependence, other tobacco product, uncomplicated; Z55.6 Problems related to health literacy
CPT/HCPCS: 74177; 80053; 81001; 83690; 84484; 84703; 85025; 93005; 96361; 96372; 96374; 96375; J1630; J2270; J2405; Q9967